=== PATIENT | male | born 1960 | race Caucasian/White ===

== ENCOUNTER 2017-03-04 01:08 | Emergency (ER) | payer OTHER ==
[~2017-03-04] VITALS: Ht 177.8 cm; Wt 137.0 kg
[2017-03-04] MEDS ORDERED: LOSA50TA2 PO (01:49)
[2017-03-04] MEDS ORDERED: ALBU0.63 (02:02)
[2017-03-04] MEDS ORDERED: FLT05NA16 NS (02:02)
[2017-03-04] MEDS ORDERED: LVT.088T PO (02:02)
[2017-03-04] MEDS ORDERED: LORA10TA76 PO (02:02)
[2017-03-04] MEDS ORDERED: BUME1TAB26 PO (02:02)
[2017-03-04] MEDS ORDERED: TERA1CAP3 PO (02:02)
--- NOTE | 2017-03-04 02:22 | ED Respiratory ---
General Chief Complaint: Respiratory Problems Stated Complaint: SOB Nursing Triage Note: pt c/o SOA onset this evening and unable to tolerate CPAP, pt thinks allergies are acting up, itchy eyes and throat Source: patient, family Exam Limitations: no limitations History of Present Illness Time seen by provider: 02:17 Initial Comments Patient presents to ER by private conveyance with chief complaint of aching up around midnight having some wheezing and feeling tightness in his throat. He took an albuterol inhaler treatment and this helped him feel better. This is happened a few times in the past but never this severe. Patient is not sure if he is just allergic to something. He does take Claritin every day as well as Flonase occasionally and nasal saline washes. He remarks that his Flonase from 2014. 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 He is feeling much better by the time he got to the ER. No longer having wheezing or difficulty breathing. He says he had pulmonary function testing done at his doctor Dr. Flores in [place] proximally 5 or 6 months ago. No history of asthma and he does not smoke. Allergies and Home Medications Allergies Coded Allergies: No Known Drug Allergies (Unverified , 03/04/17) Home Medications Albuterol Sulfate 0.63 Mg/3 Ml Vial.neb, PRN, (Reported) Bumetanide 1 Mg Tab, 1 PO DAILY, (Reported) Fluticasone Propionate 16 Gm [place], 2 SPRAYS NS PRN, (Reported) Levothyroxine Sodium 88 Mcg Tab, 88 MCG PO DAILY, (Reported) Loratadine 10 Mg Tablet, 10 MG PO PRN, (Reported) Losartan Potassium 50 Mg Tablet, 50 MG PO DAILY, Ref 0 (Reported) Prednisone 20 Mg Tab, 40 MG PO DAILY for 5 Days, #8 Ref 0 Prescribed by: ARGENTINA PHILIP on 03/04/17 0246 Terazosin Hcl 1 Mg Capsule, 2 PO HS, (Reported) Constitutional: No chills, No diaphoresis, No dizziness, No fever, No malaise EENTM: No ear pain, No eye pain, No nose congestion, No nose pain Respiratory: cough (occasional nonproductive), short of breath (mild) Cardiovascular: No chest pain, No palpitations, No syncope Gastrointestinal: No abdominal pain, No constipation, No diarrhea, No nausea Genitourinary: No discharge, No dysuria Skin: No pruritus, No rash Psychiatric/Neurological: Denies Headache, Denies Numbness Past Fukoxtd-Cceevk-Bejuzb Hx Patient Social History Alcohol Use: Denies Use Recreational Drug Use: No Smoking Status: Former Smoker Type Used: Cigars Recent Foreign Travel: No Contact w/Someone Who Travel: No Recent Infectious Disease Expo: No Recent Hopitalizations: No Seasonal Allergies Seasonal Allergies: Yes (Worse in the fall) Respiratory Respiratory Disorders: Sleep Apnea Cardiovascular Cardiac Disorders: Hypertension Musculoskeletal Musculoskeletal Disorders: Arthritis Endocrine Endocrine Disorders: Hypothyroidsim Blood Transfusions Adverse Reaction to a Blood Tr: No Physical Exam Vital Signs Vital Sign - Last 12Hours 03/04/17 01:37 Temp 98.0 Pulse 64 Resp 20 B/P (MAP) 163/86 Pulse Ox 97 O2 Delivery Room Air Capillary Refill : Less Than 3 Seconds General Appearance: WD/WN, no apparent distress Eyes: Bilateral Eye EOMI, Bilateral Eye Normal Inspection, Bilateral Eye PERRL HEENT: TMs normal, pharynx normal Neck: non-tender, full range of motion, supple, normal inspection Respiratory: lungs clear, normal breath sounds, no respiratory distress, no accessory muscle use, decreased breath sounds Cardiovascular: normal peripheral pulses, regular rate, rhythm Gastrointestinal: normal bowel sounds, non tender, soft Neurologic/Psychiatric: alert, oriented x 3 Skin: normal color, warm/dry Progress/Results/Core Measures Results/Orders My Orders Orders - ARGENTINA PHILIP Chest Pa/Lat (2 View) (03/04/17 02:22) Albuterol/Ipra Inhalation Soln (Duoneb I (03/04/17 02:30) Prednisone Tablet (Deltasone Tablet) (03/04/17 02:30) Svn Sm Volume Nebulizer Rt-Rfs (03/04/17 02:22) Medications Given in ED Current Medications Medications Dose Ordered Sig/Emily Route Start Time Stop Time Status Last Admin Dose Admin Albuterol/ Ipratropium 3 ml ONCE ONCE INH 03/04/17 02:30 03/04/17 02:31 DC 03/04/17 02:29 3 ML Prednisone 40 mg ONCE ONCE PO 03/04/17 02:30 03/04/17 02:31 DC 03/04/17 02:33 40 MG Vital Signs/I&O Vital Sign - Last 12Hours 03/04/17 03/04/17 03/04/17 01:37 02:29 02:52 Temp 98.0 Pulse 64 66 Resp 20 16 B/P (MAP) 163/86 Pulse Ox 97 95 95 O2 Delivery Room Air Room Air Room Air Blood Pressure Mean: 111 Diagnostic Imaging Diagonstic Imaging: Xray Plain Films/CT/US/NM/MRI: chest Comments No acute cardiopulmonary processes. Reviewed: Reviewed by Me Departure Impression Impression: Primary Impression: Wheezing Disposition: HOME, SELF-CARE Condition: Stable Departure-Patient Inst. Decision time for Depature: 02:43 Referrals: NO,LOCAL PHYSICIAN (PCP/Family) Primary Care Physician Patient Instructions: Cough, Adult (DC) Add. Discharge Instructions: Please take 2 tablets of prednisone daily until they're completed. Use the albuterol that you are have every 4 hours as needed for wheezing or tightness in your chest or increased coughing. If you continue to have these symptoms more than a 5-7 days you should follow up with your primary care physician in [place] have her review your pulmonary workup. If you have swelling of throat, changes in your voice, wheezing that is not controlled with albuterol or worsening symptoms you should return to the ER immediately. All discharge instructions reviewed with patient and/or family. Voiced understanding. Scripts Prednisone (Prednisone) 20 Mg Tab 40 MG PO DAILY for 5 Days, #8 TAB 0 Refills Prov: ARGENTINA PHILIP 03/04/17 ARGENTINA PHILIP Mar 04, 2017 02:22
[2017-03-04] MEDS ORDERED: RT-ALBUTEROL/IPRATROPIUM 3 ML (DUONEB) VIAL INH ONE (02:30)
[2017-03-04] MEDS ORDERED: predniSONE 20 MG TAB PO ONE (02:30)
[2017-03-04] MEDS ORDERED: PRD20T PO (02:46)
[2017-03-04 02:52] VITALS: BP 0/0
--- NOTE | 2017-03-04 08:16 | Diagnostic Imaging Report ---
EXAMINATION: PA and lateral views of the chest. INDICATION: Shortness of breath. FINDINGS: The lungs are hyperinflated. The heart size is borderline enlarged. There is no effusion or pneumothorax The mediastinum and odette appear unremarkable. IMPRESSION: Borderline cardiac size. Dictated by: Dictated on workstation # [id number]
== END 2017-03-04 02:52 | disposition home or self-care (01) ==
LOC: EDUNIT# 01:08 → ER 01:13
DX: R06.2 Wheezing (principal); G47.30 Sleep apnea, unspecified; E03.9 Hypothyroidism, unspecified; I10 Essential (primary) hypertension; M19.90 Unspecified osteoarthritis, unspecified site; Z87.891 Personal history of nicotine dependence
CPT/HCPCS: 71020; 94640; 99283

== ENCOUNTER 2017-09-25 04:35 | Emergency (ER) | payer OTHER ==
[~2017-09-25] VITALS: Ht 177.8 cm; Wt 145.1 kg
[~2017-09-25 04:35] MED LIST: ALBU0.63; BUME1TAB26 PO; FLT05NA16 NS; LORA10TA76 PO; LOSA50TA2 PO; LVT.088T PO; PRD20T PO; TERA1CAP3 PO
[2017-09-25 05:00] LABS: BASOPHILS % (AUTO) 1 % (0-10); EOSINOPHILS # (AUTO) 0.2 10^3/uL (0.0-0.3); EOSINOPHILS % (AUTO) 4 % (0-10); HEMATOCRIT 41 % (40-54); HEMOGLOBIN 14.6 G/DL (13.3-17.7); LYMPHOCYTES # (AUTO) 2.3 X 10^3 (1.0-4.0); LYMPHOCYTES % (AUTO) 38 % (12-44); MEAN CORPUSCULAR HEMOGLOBIN 29 PG (25-34); MEAN CORPUSCULAR HGB CONC 35 G/DL (32-36); MEAN CORPUSCULAR VOLUME 82 FL (80-99); MEAN PLATELET VOLUME 9.3 FL (7.4-10.4); MONOCYTES # (AUTO) 0.5 X 10^3 (0.0-1.0); MONOCYTES % (AUTO) 8 % (0-12); NEUTROPHILS % (AUTO) 50 % (42-75); PLATELET COUNT 246 10^3/uL (130-400); RED BLOOD COUNT 5.03 10^6/uL (4.35-5.85); RED CELL DISTRIBUTION WIDTH 13.4 % (10.0-14.5)
[2017-09-25] MEDS ORDERED: RT-ALBUTEROL/IPRATROPIUM 3 ML (DUONEB) VIAL INH ONE (05:00)
[2017-09-25] MEDS ORDERED: ASPIRIN 81 MG CHEW (CHILDREN'S ASA) PO ONE (05:00)
[2017-09-25 05:09] LABS: INR 0.9 (0.8-1.4); PROTHROMBIN TIME PATIENT 12.7 SEC (12.2-14.7)
[2017-09-25 05:30] LABS: ALANINE AMINOTRANSFERASE 74 U/L (0-55); ALBUMIN 4.1 GM/DL (3.2-4.5); ALKALINE PHOSPHATASE 54 U/L (40-136); BILIRUBIN,TOTAL 0.6 MG/DL (0.1-1.0); BUN/CREATININE RATIO 13; CALCIUM 9.2 MG/DL (8.5-10.1); CARBON DIOXIDE 21 MMOL/L (21-32); CHLORIDE 105 MMOL/L (98-107); CREATININE SERUM 0.85 MG/DL (0.60-1.30); GFR ESTIMATED > 60; GLUCOSE 139 MG/DL (70-105); MAGNESIUM 2.2 MG/DL (1.8-2.4); POTASSIUM 3.6 MMOL/L (3.6-5.0); SODIUM 139 MMOL/L (135-145); TOTAL PROTEIN 7.2 GM/DL (6.4-8.2)
[2017-09-25 05:37] LABS: MYOGLOBIN SERUM 74.1 NG/ML (10.0-92.0)
--- NOTE | 2017-09-25 05:50 | ED General ---
General Chief Complaint: Respiratory Problems Stated Complaint: WEAK,SOB,BOTH ARMS HURT,HIGH BLOOD PRESSURE 199/89 Nursing Triage Note: PT TO ED 7 W/ S.O. FOR C/O SOB ONSET 0300 THIS AM. PT REPORTS HE WOKE W/ HIS CPAP ON "GASPING" FOR BREATH. PT DENIES CP AT THIS TIME. Nursing Sepsis Screen: No Definite Risk Source of Information: Patient Exam Limitations: No Limitations History of Present Illness Date Seen by Provider: Sep 25, 2017 Time Seen by Provider: 04:41 Initial Comments This 56-year-old gentleman presents to the emergency room with primary complaint of shortness of air that woke him from sleep around 03:00 with gasping. He was wearing his CPAP at the time. He also complains of paresthesia described as a burning sensation on the medial left arm. He has felt weak and trembling in the upper extremities as well. He took aspirin but vomited times one. He reports having some excessive belching recently as well. Symptoms do seem to be improving now. He was also concerned because his blood pressure was quite elevated after this episode. He denies having any chest pain at any point in time. Allergies and Home Medications Allergies Coded Allergies: No Known Drug Allergies (Unverified , 03/04/17) Home Medications Albuterol Sulfate 0.63 Mg/3 Ml Vial.neb, PRN, (Reported) Bumetanide 1 Mg Tab, 1 PO DAILY, (Reported) Fluticasone Propionate 16 Gm [place], 2 SPRAYS NS PRN, (Reported) Levothyroxine Sodium 88 Mcg Tab, 88 MCG PO DAILY, (Reported) Loratadine 10 Mg Tablet, 10 MG PO PRN, (Reported) Losartan Potassium 50 Mg Tablet, 50 MG PO DAILY, Ref 0 (Reported) Prednisone 20 Mg Tab, 40 MG PO DAILY for 5 Days, #8 Ref 0 Prescribed by: ARGENTINA PHILIP on 03/04/17 0246 Terazosin Hcl 1 Mg Capsule, 2 PO HS, (Reported) Constitutional: no symptoms reported EENTM: no symptoms reported Respiratory: see HPI Cardiovascular: see HPI Gastrointestinal: see HPI Genitourinary: no symptoms reported Musculoskeletal: no symptoms reported Skin: no symptoms reported Psychiatric/Neurological: No Symptoms Reported Hematologic/Lymphatic: No Symptoms Reported Past [id number]-[id number]-[id number] Hx Patient Social History Alcohol Use: Denies Use Recreational Drug Use: No Smoking Status: Former Smoker Type Used: Cigars Former Smoker, Quit: Sep 11, 1987 Recent Foreign Travel: No Contact w/Someone Who Travel: No Recent Infectious Disease Expo: No Recent Hopitalizations: No Physical Abuse: No Sexual Abuse: No Mistreated: No Fear: No Seasonal Allergies Seasonal Allergies: Yes (Worse in the fall) Surgeries History of Surgeries: Yes (Scope done on bilateral knees 2014) Respiratory History of Respiratory Disorde: Yes Respiratory Disorders: Sleep Apnea (uses CPAP) Currently Using CPAP: Yes Cardiovascular History of Cardiac Disorders: Yes Cardiac Disorders: Hypertension Neurological History of Neurological Disord: No Genitourinary History of Genitourinary Disor: No Gastrointestinal History of Gastrointestinal Di: No Musculoskeletal History of Musculoskeletal Dis: Yes Musculoskeletal Disorders: Arthritis Endocrine History of Endocrine Disorders: Yes Endocrine Disorders: Hypothyroidsim HEENT History of HEENT Disorders: No Cancer History of Cancer: No Psychosocial History of Psychiatric Problem: No Suicide Risk Score: 0 Integumentary History of Skin or Integumenta: No Blood Transfusions History of Blood Disorders: No Adverse Reaction to a Blood Tr: No Family Medical History Significant Family History: Heart Disease, Diabetes Physical Exam Vital Signs Vital Signs - First Documented 09/25/17 04:41 Temp 97.8 Pulse 77 Resp 20 B/P (MAP) 168/93 (118) Pulse Ox 95 O2 Delivery Room Air Capillary Refill : Less Than 3 Seconds General Appearance: No Apparent Distress, WD/WN, Obese HEENT: PERRL/EOMI, Normal ENT Inspection, Pharynx Normal Neck: Normal Inspection Respiratory: Lungs Clear, Normal Breath Sounds, No Accessory Muscle Use, No Respiratory Distress, Wheezing (with forced expiration), Other (delayed expiratory phase with forced expiration) Cardiovascular: Regular Rate, Rhythm, No Edema, No Murmur Gastrointestinal: Normal Bowel Sounds, Non Tender, Soft Extremity: Normal Inspection, No Pedal Edema Neurologic/Psychiatric: Alert, Oriented x3, No Motor/Sensory Deficits, Normal Mood/Affect, psychological operations specialist II-XII Norm as Tested Skin: Normal Color, Warm/Dry Progress/Results/Core Measures Suspected Sepsis Recent Fever Within 48 Hours: No Infection Criteria Present: None New/Unexplained Altered Menta: No Sepsis Screen: No Definite Risk Sepsis Diagnosis: SIRS Temperature:97.8 Pulse: 77 Respiratory Rate: 20 Laboratory Tests 09/25/17 04:53: White Blood Count 6.0 Blood Pressure 168 /93 Mean: 118 Laboratory Tests 09/25/17 04:53: Creatinine 0.85, INR Comment 0.9, Platelet Count 246, Total Bilirubin 0.6 Results/Orders Lab Results Laboratory Tests Test 09/25/17 04:53 Range/Units White Blood Count 6.0 4.3-11.0 10^3/uL Red Blood Count 5.03 4.35-5.85 10^6/uL Hemoglobin 14.6 13.3-17.7 G/DL Hematocrit 41 40-54 % Mean Corpuscular Volume 82 80-99 FL Mean Corpuscular Hemoglobin 29 25-34 PG Mean Corpuscular Hemoglobin Concent 35 32-36 G/DL Red Cell Distribution Width 13.4 10.0-14.5 % Platelet Count 246 130-400 10^3/uL Mean Platelet Volume 9.3 7.4-10.4 FL Neutrophils (%) (Auto) 50 42-75 % Lymphocytes (%) (Auto) 38 12-44 % Monocytes (%) (Auto) 8 0-12 % Eosinophils (%) (Auto) 4 0-10 % Basophils (%) (Auto) 1 0-10 % Neutrophils # (Auto) 3.0 1.8-7.8 X 10^3 Lymphocytes # (Auto) 2.3 1.0-4.0 X 10^3 Monocytes # (Auto) 0.5 0.0-1.0 X 10^3 Eosinophils # (Auto) 0.2 0.0-0.3 10^3/uL Basophils # (Auto) 0.0 0.0-0.1 10^3/uL Prothrombin Time 12.7 12.2-14.7 SEC INR Comment 0.9 0.8-1.4 Activated Partial Thromboplast Time 32 24-35 SEC Sodium Level 139 135-145 MMOL/L Potassium Level 3.6 3.6-5.0 MMOL/L Chloride Level 105 98-107 MMOL/L Carbon Dioxide Level 21 21-32 MMOL/L Anion Gap 13 5-14 MMOL/L Blood Urea Nitrogen 11 7-18 MG/DL Creatinine 0.85 0.60-1.30 MG/DL Estimat Glomerular Filtration Rate > 60 BUN/Creatinine Ratio 13 Glucose Level 139 H 70-105 MG/DL Calcium Level 9.2 8.5-10.1 MG/DL Magnesium Level 2.2 1.8-2.4 MG/DL Total Bilirubin 0.6 0.1-1.0 MG/DL Aspartate Amino Transf (AST/SGOT) 38 H 5-34 U/L Alanine Aminotransferase (ALT/SGPT) 74 H 0-55 U/L Alkaline Phosphatase 54 40-136 U/L Myoglobin 74.1 10.0-92.0 NG/ML Troponin I < 0.30 <0.30 NG/ML Total Protein 7.2 6.4-8.2 GM/DL Albumin 4.1 3.2-4.5 GM/DL My Orders Orders - ERIKA DIEZ MD Cbc With Automated Diff (09/25/17 04:50) Magnesium (09/25/17 04:50) Ekg Tracing (09/25/17 04:50) Cardiac Profile 1 (09/25/17 04:50) Comprehensive Metabolic Panel (09/25/17 04:50) Myoglobin Serum (09/25/17 04:50) Protime With Inr (09/25/17 04:50) Partial Thromboplastin Time (09/25/17 04:50) O2 (09/25/17 04:50) Monitor-Rhythm Ecg Trace Only (09/25/17 04:50) Lipid Panel (09/26/17 06:00) Aspirin Chewable Tablet (Baby Aspirin Ch (09/25/17 05:00) Saline Lock/Iv-Start (09/25/17 04:50) Chest Pa/Lat (2 View) (09/25/17 04:50) Albuterol/Ipra Inhalation Soln (Duoneb I (09/25/17 05:00) Svn Sm Volume Nebulizer Rt-Rfs (09/25/17 04:50) Thyroid Stimulating Hormone (09/25/17 05:50) Free T4 (Free Thyroxine) (09/25/17 05:50) Medications Given in ED Current Medications Medications Dose Ordered Sig/Emily Route Start Time Stop Time Status Last Admin Dose Admin Albuterol/ Ipratropium 3 ml ONCE ONCE INH 09/25/17 05:00 09/25/17 05:01 DC 09/25/17 05:00 3 ML Aspirin 324 mg ONCE ONCE PO 09/25/17 05:00 09/25/17 05:01 DC 09/25/17 05:07 324 MG Vital Signs/I&O Vital Sign - Last 12Hours 09/25/17 09/25/17 04:41 05:00 Temp 97.8 Pulse 77 Resp 20 B/P (MAP) 168/93 (118) Pulse Ox 95 95 O2 Delivery Room Air Room Air Capillary Refill : Less Than 3 Seconds Blood Pressure Mean: 118 Progress Note : Progress Note Patient received aspirin and chest pain protocol was ordered for assessment, although patient had no actual chest pain at any point this morning. He received a DuoNeb treatment which improved his symptoms significantly. The left arm paresthesias were also improving. Patient does note that he was sleeping on his left side during this episode. The paresthesias may be related to positional nerve impingement. ECG Initial ECG Impression Date: Sep 25, 2017 Initial ECG Impression Time: 04:43 Initial ECG Rate: 79 Initial ECG Rhythm: Normal Sinus Comment Normal sinus rhythm with no ST elevation or depression. No abnormal intervals or axis deviation. Diagnostic Imaging Diagonstic Imaging: Xray Plain Films/CT/US/NM/MRI: chest Comments Chest x-ray viewed by me. Compared with prior. Report yet available. No acute changes appreciated. Departure Impression Impression: Primary Impression: COPD exacerbation Additional Impressions: Arm paresthesia, left Hypertension Qualified Codes: I10 - Essential (primary) hypertension Disposition: HOME, SELF-CARE Condition: Improved Departure-Patient Inst. Referrals: [facility] [place] (PCP) Primary Care Physician LILY PACK APRN (Family) Primary Care Physician Patient Instructions: Chronic Obstructive Pulmonary Disease (COPD), Including Emphysema Add. Discharge Instructions: Follow-up with your primary care provider soon as possible. Thyroid labs were checked but were not resulted prior to your dismissal from the ER. Please follow-up on results with your primary care provider. For significant shortness of breath please use your nebulizer machine every 4 hours as needed. Continue to use CPAP whenever sleeping. Work toward weight reduction to reduce symptoms of sleep apnea and COPD. All discharge instructions reviewed with patient and/or family. Voiced understanding. ERIKA DIEZ MD Sep 25, 2017 05:50
[2017-09-25 06:05] VITALS: BP 138/100
--- NOTE | 2017-09-25 06:10 | Diagnostic Imaging Report ---
INDICATION: Shortness of breath. EXAMINATION: PA and lateral chest. FINDINGS: Heart size and pulmonary vascularity are normal. Lungs are clear. There are no effusions or pneumothoraces. IMPRESSION: Negative chest. Dictated by: Dictated on workstation # [id number]
[2017-09-25 06:33] LABS: FREE T4 (FREE THYROXINE) 0.96 NG/DL (0.70-1.48)
== END 2017-09-25 06:05 | disposition home or self-care (01) ==
LOC: EDUNIT# 04:35 → ER 04:39
DX: J44.1 Chronic obstructive pulmonary disease with (acute) exacerbation (principal); I10 Essential (primary) hypertension; R20.2 Paresthesia of skin; G47.30 Sleep apnea, unspecified; E03.9 Hypothyroidism, unspecified; Z82.49 Family history of ischemic heart disease and other diseases of the circulatory system; Z79.52 Long term (current) use of systemic steroids; Z87.891 Personal history of nicotine dependence
CPT/HCPCS: 36415; 71046; 80053; 83735; 83874; 84439; 84443; 84484; 85025; 85610; 85730; 93005; 93041; 94640

== ENCOUNTER 2018-03-06 16:00 | Outpatient (CLI) | payer OTHER | END 2018-03-06 16:40 | disposition home or self-care (01) | LOC: SLEEP 16:00 | PROVIDERS: ATTEND Nurse Practitioner Family | DX: G47.33 Obstructive sleep apnea (adult) (pediatric) (principal); G47.10 Hypersomnia, unspecified; I10 Essential (primary) hypertension; R06.83 Snoring ==

== ENCOUNTER 2021-06-12 05:36 | Outpatient (CLI) | payer OTHER ==
[~2021-06-12] VITALS: Ht 175.3 cm; Wt 147.4 kg
[2021-06-13] MEDS ORDERED: MONT10TA32 PO (10:24)
[2021-06-13] MEDS ORDERED: TERA1CAP3 PO (10:24)
[2021-06-13] MEDS ORDERED: LOSA100T57 PO (10:24)
[2021-06-13] MEDS ORDERED: FURO40TA4 PO (10:24)
[2021-06-13] MEDS ORDERED: PANT40TA52 PO (10:24)
== END 2021-06-13 11:23 | disposition home or self-care (01) ==
LOC: PREOP 05:36
PROVIDERS: ATTEND Surgery
DX: Z01.818 Encounter for other preprocedural examination (principal)

== ENCOUNTER 2021-06-19 11:50 | Day surgery (SDC) | payer OTHER ==
[~2021-06-19] VITALS: Ht 175.3 cm; Wt 147.4 kg
[~2021-06-19 11:50] MED LIST changes: +FURO40TA4 PO; +LOSA100T57 PO; +MONT10TA32 PO; +PANT40TA52 PO
[2021-06-19] MEDS ORDERED: LACTATED RINGERS 1,000 ML IV ONE (12:14)
[2021-06-19] MEDS ORDERED: LACTATED RINGERS 1,000 ML IV STA (12:20)
[2021-06-19] MEDS ORDERED: proPOfol 200 MG/20 ML (DIPRIVAN) VIAL IV ONE ×2 (12:21→13:37)
[2021-06-19] MEDS ORDERED: MIDAZOLAM 2 MG/2 ML (VERSED) VIAL ONE (12:21)
--- NOTE | 2021-06-19 12:24 | Progress Note-Pre Operative ---
Pre-Operative Progress Note H&P Reviewed The H&P was reviewed, patient examined and no changes noted. Date Seen by Provider: Jun 19, 2021 Time Seen by Provider: 12:22 Date H&P Reviewed: Jun 19, 2021 Time H&P Reviewed: 12:22 Pre-Operative Diagnosis: Positive cologuard and altered bowel habits SONNY BERGER DO Jun 19, 2021 12:24
[2021-06-19 12:48] VITALS: BP 169/89
[2021-06-19 13:55] VITALS: BP 101/50
[2021-06-19 14:00] VITALS: BP 105/55
--- NOTE | 2021-06-19 14:04 | Progress Note-Post Operative ---
Post-Operative Progess Note Surgeon (s)/Feed Mixer Helper (s) Surgeon SONNY BERGER DO Feed Mixer Helper: N/A Pre-Operative Diagnosis Positive cologuard and altered bowel habits Post-Operative Diagnosis Diverticulosis, cecal polyps x2, ascending colon polyp x 2, Transverse colon polyp, descending colon polyp x2, sigmoid polyps x3 Procedure & Operative Findings Date of Procedure 06/19/21 Procedure Performed/Findings Colonoscopy with snare polypectomy x 8, hot biopsy polypectomy x 2, isai ink in sigmoid Anesthesia Type per disc pad plate filler Estimated Blood Loss Estimated blood loss (mL): None Specimens/Packing Specimens Removed colon polyps SONNY BERGER DO Jun 19, 2021 14:04
[2021-06-19 14:05] VITALS: BP 114/56
--- NOTE | 2021-06-19 14:05 | Discharge Inst-Simple/Standard ---
Discharge Inst-Standard Patient Instructions/Follow Up Plan of Care/Instructions/FU: 2 weeks [place] Activity as Tolerated: Yes Discharge Diet: Regular Diet (high fiber) SONNY BERGER DO Jun 19, 2021 14:05
[2021-06-19 14:10] VITALS: BP 114/56
[2021-06-19 14:34] VITALS: BP 114/56
--- NOTE | 2021-06-19 22:46 | OPERATIVE REPORT ---
DATE OF SERVICE: 06/19/2021 PREOPERATIVE DIAGNOSES: Positive Cologuard and altered bowel dysfunction. POSTOPERATIVE DIAGNOSES: Diverticulosis and multiple colon polyps. SURGEON: Sonny Austin DO ANESTHESIA: Per HUMAN RESOURCES PSYCHOLOGIST. ESTIMATED BLOOD LOSS: None. COMPLICATIONS: None. PROCEDURE: Colonoscopy with snare polypectomy x8 and hot biopsy polypectomy x2, Kym inking of the sigmoid. INDICATIONS: The patient is a 60-year-old male who had a positive Cologuard and was having altered bowel function. He understands risks and benefits of procedure and wished to proceed with procedure. Consent was signed in the chart. DESCRIPTION OF PROCEDURE: The patient was taken to the endoscopy suite, placed in left lateral recumbent position. Timeout was performed. Digital rectal exam was performed. There were no palpable polyps, masses or ulcerations. Scope was inserted in the rectum and advanced all the way to cecum with minimal difficulty. In the cecum, there were 2 polyps present, which snare polypectomies were performed. One had to be suctioned with the snare in order to get it to be suctioned. These were obtained for pathology. Scope was then slowly retracted back in the ascending colon, there were 2 other polyps, which snare polypectomies were performed as well. Had a piecemeal of these after it had been removed in order to get him to suction. Scope was then continuously retracted back. In the transverse colon, another polyp was present, which snare polypectomy was performed. This was obtained for pathology. Scope was continuously retracted back into the descending colon where another polyp was present, which snare polypectomy was performed. Another polyp was a small present, which hot biopsy polypectomy was performed. Scope was then continuously slowly retracted back into the sigmoid colon, a small polyp was present, which hot biopsy polypectomy was performed. Continued to be slowly retracted back. A large polyp that was pedunculated was present, which 3 mL of Kym ink was injected just distal to the polyp, which 1 mL in 3 locations. At this point, the snare polypectomy was performed. The specimen was too large to suction; therefore, scope was slowly withdrawn until it was removed. Scope was then reinserted and advanced all the way to the tattoo and then the scope was then continuously retracted back. Another small polyp was present, which snare polypectomy was performed. Scope was then continuously retracted back into the rectum where it was also retroflexed noting no other pathology. Scope was returned to its normal position, slowly withdrawn until completely removed. The patient tolerated procedure well without any complications, taken to recovery room in stable condition. RECOMMENDATIONS: The patient will need repeat colonoscopy in 1 year to reevaluate. We will go over pathology. Depending upon pathology, the patient may need to discuss colon resection. Job ID: [id number] DocumentID: [id number] Dictated Date: 06/19/2021 14:10:16 Polygraph Examiner Date: 06/19/2021 22:46:18 Dictated By: SONNY AUSTIN DO
--- NOTE | 2021-06-20 13:28 | Anesthesia-General Post-Op ---
MAC Patient Condition Mental Status/LOC: Same as Preop Cardiovascular: Satisfactory Nausea/Vomiting: Absent Respiratory: Satisfactory Pain: Controlled Complications: Absent Post Op Complications Complications None Follow Up Care/Instructions Patient Instructions None needed. Anesthesiology Discharge Order Discharge Order Patient is doing well, no complaints, stable vital signs, no apparent adverse anesthesia problems. No complications reported per nursing. ZEYAD JOHNSON CRNA Jun 20, 2021 13:27
== END 2021-06-19 14:35 | disposition home or self-care (01) ==
LOC: ENDO 11:50
PROVIDERS: ATTEND Surgery
DX: D12.0 Benign neoplasm of cecum (principal); D12.2 Benign neoplasm of ascending colon; D12.3 Benign neoplasm of transverse colon; D12.4 Benign neoplasm of descending colon; D12.5 Benign neoplasm of sigmoid colon; K63.5 Polyp of colon; K57.90 Diverticulosis of intestine, part unspecified, without perforation or abscess without bleeding; K42.9 Umbilical hernia without obstruction or gangrene; K21.9 Gastro-esophageal reflux disease without esophagitis; I10 Essential (primary) hypertension; G47.33 Obstructive sleep apnea (adult) (pediatric); E66.01 Morbid (severe) obesity due to excess calories; Z68.42 Body mass index [BMI] 45.0-49.9, adult; Z87.891 Personal history of nicotine dependence; Z79.899 Other long term (current) drug therapy